=== PATIENT | female | born 1965 | race Caucasian/White ===

== ENCOUNTER 2019-03-12 06:05 | Emergency (ER) | payer MEDICAID ==
[~2019-03-12] VITALS: Ht 162.6 cm; Wt 48.5 kg
[2019-03-12 06:08] VITALS: BP 131/72
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
--- NOTE | 2019-03-12 07:05 | NUR ---
TRANSFER OF CARE AND REPORT GIVEN TO YULI CHEUNG
--- NOTE | 2019-03-12 07:08 | NUR ---
RECIEVED REPORT FROM YULI SALGADO. WILL CONT PLAN OF CARE AT THIS TIME.
[2019-03-12] MEDS ORDERED: KETOROLAC 30 MG/ML VIAL IVP ONE (07:55)
[2019-03-12] MEDS ORDERED: NACL 0.9% 1,000 ML IV ONE (07:55)
[2019-03-12 08:32] LABS: BASOPHILS % (AUTO) 0.4 % (0.0-2.0); EOSINOPHILS # (AUTO) 0.1 K/uL (0-0.4); EOSINOPHILS % (AUTO) 1.3 % (0.0-4.0); HEMATOCRIT 37.7 % (36-48); LYMPHOCYTES # (AUTO) 1.7 K/uL (2.5-16.5); LYMPHOCYTES % (AUTO) 17.3 % (20.5-51.1); MEAN CORPUSCULAR HEMOGLOBIN 27 pg (27-31); MEAN CORPUSCULAR HGB CONC 32 g/dL (33-37); MEAN CORPUSCULAR VOLUME 84.6 fL (80-94); MONOCYTES # (AUTO) 0.9 K/uL (0.8-1.0); MONOCYTES % (AUTO) 9.7 % (1.7-9.3); NEUTROPHILS % (AUTO) 71.3 % (42.2-75.2); PLATELET COUNT (AUTO) 234 K/uL (140-450); RED BLOOD CELL COUNT(AUTO) 4.46 MIL/uL (4.20-5.40); RED CELL DISTRIBUTION WIDTH 14.4 % (11.6-13.7); WHITE BLOOD COUNT (AUTO) 9.8 K/uL (4.8-10.8)
[2019-03-12 08:53] LABS: BARBITURATE, URINE NEG. ng/ml (NEG <=200); BENZODIAZEPINE, URINE NEG. ng/mL (NEG <=200); CANNABINOID, URINE POS. ng/mL (NEG <=50); COCAINE, URINE NEG. ng/mL (NEG <=300); OPIATE, URINE NEG. ng/mL (NEG <=2000); PHENCYCLIDINE SCREEN,URINE NEG. ng/mL (NEG <=25)
[2019-03-12 08:59] LABS: ALBUMIN 3.3 g/dL (3.4-5.0); ANION GAP 14.5 (8-16); ASPARTATE AMINOTRANSFERASE 18 U/L (15-37); CARBON DIOXIDE 25.1 mmol/L (21-32); CHLORIDE 105 mmol/L (98-107); CREATININE 0.6 mg/dL (0.6-1.3); GFR ARICAN-AMERICAN 133 mL/min (>90); GLUCOSE 85 mg/dL (74-106); POTASSIUM 3.6 mmol/L (3.5-5.1); SODIUM SERUM 141 mmol/L (136-145); TOTAL BILIRUBIN 0.7 mg/dL (0.0-1.0); UREA NITROGEN, BLOOD 16 mg/dL (7-18)
[2019-03-12 09:21] LABS: ACETAMINOPHEN < 0.5 ug/ml (10-30); SALICYLATE < 2.8 mg/dL (2.8-20.0)
[2019-03-12 11:11] VITALS: BP 131/72
--- NOTE | 2019-03-12 11:12 | NUR ---
Patient discharged with v/s stable. Written and verbal after care instructions given and explained. Patient verbalized understanding. Ambulatory with steady gait. All questions addressed prior to discharge. Advised to follow up with PMD. PROVIDED [employer] [facility] SKILLED NURSING, CLINICS, AND FOOD. GIVEN A MEAL BEFORE LEAVING. PROVIDED TRANSPORTATION.
--- NOTE | 2019-03-12 11:15 | NUR ---
Patient given written and verbal discharge instructions and verbalizes understanding. Patient is awake, alert and oriented. Ambulatory with steady gait. offer of fci placement. Given list of available shelters in surrounding areas. PROVIDED BUS PASS FOR TRANSPORATION AND PROVIDED FOOD WELL.
== END 2019-03-12 11:12 | disposition home or self-care (01) ==
LOC: MED 06:05
DX: J06.9 Acute upper respiratory infection, unspecified (principal); R03.0 Elevated blood-pressure reading, without diagnosis of hypertension; F17.200 Nicotine dependence, unspecified, uncomplicated
CPT/HCPCS: 36415; 80053; 80305; 81002; 81025; 85025; 93005; 96374; 99284; G0480; G0482; J1885; J7030